=== PATIENT | female | born 1955 | race Caucasian/White ===

== ENCOUNTER → 2016-05-06 | Outpatient (CLI) | payer BC, MEDICARE ==
[2016-05-06 09:59] LABS: INR 1.4 (<1.1); Prothrombin Time 14.1 sec (9.0-12.0)
[2016-05-06 10:02] LABS: CH 29.7; CHCM 33.9; HCT 38.9 % (34.0-46.0); HDW 3.04; HGB 12.9 gm/dL (11.4-16.0); MCH 29.3 pg (25.0-35.0); MCHC 33.2 g/dL (31.0-37.0); Mean Platelet Volume 8.1; RBC 4.41 m/uL (3.80-5.40); RDW 14.1 % (11.5-15.5); WBC 7.2 k/uL (3.8-10.6)
[2016-05-06 10:52] LABS: ALT 35 U/L (9-52); AST 26 U/L (14-36); Alkaline Phosphatase 122 U/L (38-126); Anion Gap 12 mmol/L; Blood Urea Nitrogen 9 mg/dL (7-17); Carbon Dioxide 25 mmol/L (22-30); Chloride 107 mmol/L (98-107); Glucose 126 mg/dL (74-99); Non-African American GFR(MDRD) >60 (>60 ml/min/1.73 sqM); Potassium 4.1 mmol/L (3.5-5.1); Sodium 144 mmol/L (137-145); Total Protein 6.7 g/dL (6.3-8.2)
== END | disposition home or self-care (01) ==
LOC: LABWHC1 09:09
PROVIDERS: ATTEND Internal Medicine Gastroenterology
DX: K74.60 Unspecified cirrhosis of liver (principal)
CPT/HCPCS: 36415; 80053; 82105; 85027; 85610

== ENCOUNTER → 2016-05-06 | Outpatient (CLI) | payer BC ==
--- NOTE | 2016-05-10 08:42 | MM ---
Reason for exam: screening (asymptomatic). Last mammogram was performed 2 years and 1 month ago. History: Patient is postmenopausal. Family history of breast cancer in 2 aunts at age 60, breast cancer in grandmother at age 60, and breast cancer in mother at age 52. Excisional biopsy of the right breast, 1998. Took hormonal contraceptives for 2 years beginning at age 47. Physical Findings: A clinical breast exam by your physician is recommended on an annual basis and results should be correlated with mammographic findings. MG Screening Mammo w CAD Bilateral CC and MLO view(s) were taken. Prior study comparison: April 07, 2014, bilateral MG screening mammo w CAD. February 27, 2012, bilateral digital screening mammo w/CAD. February 06, 2011, bilateral digital screening mammo w/CAD. The breast tissue is almost entirely fat. No significant changes when compared with prior studies. ASSESSMENT: Negative, BI-RAD 1 RECOMMENDATION: Routine screening mammogram of both breasts in 1 year.
== END | disposition home or self-care (01) ==
LOC: RADMAMWWP 08:39
PROVIDERS: ATTEND Internal Medicine
DX: Z12.31 Encounter for screening mammogram for malignant neoplasm of breast (principal)

== ENCOUNTER → 2016-11-04 | Outpatient (CLI) | payer BC ==
[2016-11-04 10:44] LABS: INR 1.4 (<1.2); Prothrombin Time 13.7 sec (9.0-12.0)
[2016-11-04 11:04] LABS: CH 28.4; CHCM 32.2; HDW 3.16; HGB 12.4 gm/dL (11.4-16.0); Hypochromasia Slight; MCH 28.9 pg (25.0-35.0); MCHC 32.6 g/dL (31.0-37.0); MCV 88.5 fL (80.0-100.0); Mean Platelet Volume 7.3; RDW 14.7 % (11.5-15.5); WBC 6.7 k/uL (3.8-10.6)
[2016-11-04 11:10] LABS: Anion Gap 8 mmol/L; Carbon Dioxide 28 mmol/L (22-30); Chloride 105 mmol/L (98-107); Glucose 237 mg/dL (74-99); Potassium 3.7 mmol/L (3.5-5.1); Sodium 141 mmol/L (137-145); Total Protein 6.5 g/dL (6.3-8.2)
[2016-11-04 11:11] LABS: ALT 40 U/L (9-52); AST 34 U/L (14-36); Alkaline Phosphatase 152 U/L (38-126); Blood Urea Nitrogen 14 mg/dL (7-17); Calcium 8.8 mg/dL (8.4-10.2); Non-African American GFR(MDRD) >60 (>60 ml/min/1.73 sqM); Total Bilirubin 0.6 mg/dL (0.2-1.3)
== END | disposition home or self-care (01) ==
LOC: LABWHC1 09:41
PROVIDERS: ATTEND Internal Medicine Gastroenterology
DX: K74.60 Unspecified cirrhosis of liver (principal)
CPT/HCPCS: 36415; 80053; 82105; 85027; 85610

== ENCOUNTER → 2017-05-12 | Outpatient (CLI) | payer BC, MEDICARE ==
[2017-05-12 16:54] LABS: INR 1.2 (<1.2); Prothrombin Time 11.5 sec (9.0-12.0)
[2017-05-12 16:56] LABS: HCT 33.5 % (34.0-46.0); HGB 11.3 gm/dL (11.4-16.0); MCH 29.6 pg (25.0-35.0); MCHC 33.9 g/dL (31.0-37.0); MCV 87.4 fL (80.0-100.0); Mean Platelet Volume 7.1; Platelet Count 213 k/uL (150-450); Poikilocytosis Slight; RBC 3.83 m/uL (3.80-5.40); RDW 14.6 % (11.5-15.5); WBC 7.1 k/uL (3.8-10.6)
[2017-05-12 17:01] LABS: Albumin 3.5 g/dL (3.5-5.0); Calcium 8.5 mg/dL (8.4-10.2); Potassium 4.2 mmol/L (3.5-5.1); Total Bilirubin 0.7 mg/dL (0.2-1.3); Total Protein 6.6 g/dL (6.3-8.2)
== END | disposition home or self-care (01) ==
LOC: LABWHC1 16:17
PROVIDERS: ATTEND Internal Medicine Gastroenterology
DX: K74.60 Unspecified cirrhosis of liver (principal)
CPT/HCPCS: 36415; 80053; 82105; 85027; 85610

== ENCOUNTER 2017-05-17 16:38 | Emergency (ER) | payer BC, MEDICARE, OTHER ==
[2017-05-17 16:49] VITALS: PULSE 71
[2017-05-17] MEDS ORDERED: KETOROLAC 30 MG/ML 1 ML VIAL IM STA (17:19)
[2017-05-17] MEDS ORDERED: ORPHENADRINE 30 MG/ML 2 ML VIAL IM STA (17:19)
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
[2017-05-17 18:29] VITALS: BP 181/81; RESP 17; TEMP 97.4
== END 2017-05-17 18:28 | disposition home or self-care (01) ==
LOC: EC 16:38
DX: S13.4XXA Sprain of ligaments of cervical spine, initial encounter (principal); R11.0 Nausea; R40.2142 Coma scale, eyes open, spontaneous, at arrival to emergency department; R40.2252 Coma scale, best verbal response, oriented, at arrival to emergency department; R40.2362 Coma scale, best motor response, obeys commands, at arrival to emergency department; I48.91 Unspecified atrial fibrillation; J45.909 Unspecified asthma, uncomplicated; E11.9 Type 2 diabetes mellitus without complications; K21.9 Gastro-esophageal reflux disease without esophagitis; I10 Essential (primary) hypertension; G47.30 Sleep apnea, unspecified; F32.9 Major depressive disorder, single episode, unspecified; Z99.89 Dependence on other enabling machines and devices; Z98.890 Other specified postprocedural states; Z79.4 Long term (current) use of insulin; Z79.899 Other long term (current) drug therapy; Z88.1 Allergy status to other antibiotic agents; Z88.2 Allergy status to sulfonamides; V43.62XA Car passenger injured in collision with other type car in traffic accident, initial encounter; Y92.89 Other specified places as the place of occurrence of the external cause
CPT/HCPCS: 72125; 99284; 96372 ×2; J2360; J1885

== ENCOUNTER 2017-05-19 18:11 | Emergency (ER) | payer BC, MEDICARE, OTHER ==
[2017-05-19 18:32] VITALS: BP 146/90; PULSE 113; RESP 20; TEMP 98.6
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
== END 2017-05-19 20:00 | disposition home or self-care (01) ==
LOC: EC 18:11
DX: S16.1XXA Strain of muscle, fascia and tendon at neck level, initial encounter (principal); R51 Headache; E11.9 Type 2 diabetes mellitus without complications; J45.909 Unspecified asthma, uncomplicated; K21.9 Gastro-esophageal reflux disease without esophagitis; I10 Essential (primary) hypertension; I48.91 Unspecified atrial fibrillation; F32.9 Major depressive disorder, single episode, unspecified; Z79.4 Long term (current) use of insulin; Z79.899 Other long term (current) drug therapy; Z88.2 Allergy status to sulfonamides; Z88.8 Allergy status to other drugs, medicaments and biological substances; V43.62XA Car passenger injured in collision with other type car in traffic accident, initial encounter; Y92.410 Unspecified street and highway as the place of occurrence of the external cause
CPT/HCPCS: 70450; 99284

== ENCOUNTER → 2018-01-12 | Outpatient (CLI) | payer BC ==
--- NOTE | 2018-01-14 09:56 | MM ---
Reason for exam: screening (asymptomatic). Last mammogram was performed 1 year and 8 months ago. History: Patient is postmenopausal. Family history of breast cancer in 2 aunts at age 60, breast cancer in grandmother at age 60, and breast cancer in mother at age 52. Excisional biopsy of the right breast, 1998. Took hormonal contraceptives for 2 years beginning at age 47. Physical Findings: A clinical breast exam by your physician is recommended on an annual basis and results should be correlated with mammographic findings. MG Screening Mammo w CAD Bilateral CC and MLO view(s) were taken. XCCM view(s) were taken of the right breast. Prior study comparison: May 06, 2016, bilateral MG screening mammo w CAD. April 07, 2014, bilateral MG screening mammo w CAD. There are scattered fibroglandular densities. No significant changes when compared with prior studies. ASSESSMENT: Benign, BI-RAD 2 RECOMMENDATION: Routine screening mammogram of both breasts in 1 year.
== END | disposition home or self-care (01) ==
LOC: RADMAMWWP 13:21
PROVIDERS: ATTEND Internal Medicine
DX: Z12.31 Encounter for screening mammogram for malignant neoplasm of breast (principal)
CPT/HCPCS: 77067

== ENCOUNTER → 2019-02-03 | Outpatient (CLI) | payer BC ==
[2019-02-03 16:00] LABS: HCT 38.8 % (34.0-46.0); HGB 11.9 gm/dL (11.4-16.0); Hypochromasia Slight; MCH 25.8 pg (25.0-35.0); MCHC 30.6 g/dL (31.0-37.0); MCV 84.4 fL (80.0-100.0); Mean Platelet Volume 7.8; Platelet Count 142 k/uL (150-450); RDW 15.5 % (11.5-15.5); WBC 5.1 k/uL (3.8-10.6)
[2019-02-03 23:41] LABS: African American GFR (CKD) 69.9 (60.0-200.0); Albumin 4.1 g/dL (3.80-4.90); Albumin/Globulin Ratio 1.95 (1.60-3.17); Anion Gap 6.6 mmol/L (4.00-12.00); Carbon Dioxide 28.4 mmol/L (21.6-31.8); Chol/HDL Ratio 3.39; Globulin 2.1 g/dL (1.6-3.3); LDL Cholesterol,Calculated 98.6 mg/dL (0.0-131.0); Non-African American GFR(CKD) 60.3 (60.0-200.0); Potassium 4.4 mmol/L (3.5-5.5); Total Bilirubin 0.5 mg/dL (0.2-1.2); Total Protein 6.2 g/dL (6.2-8.2); VLDL Calculation 18.4 mg/dL (5.00-40.00)
[2019-02-04 01:01] LABS: Hemoglobin A1C 7.5 % (4.0-6.0)
== END | disposition home or self-care (01) ==
LOC: LABWHC1 15:10
PROVIDERS: ATTEND Internal Medicine
DX: I10 Essential (primary) hypertension (principal); E78.5 Hyperlipidemia, unspecified; E03.9 Hypothyroidism, unspecified; E11.65 Type 2 diabetes mellitus with hyperglycemia; Z79.4 Long term (current) use of insulin
CPT/HCPCS: 36415; 80053; 80061; 83036; 84443; 85027

== ENCOUNTER → 2019-03-17 | Outpatient (CLI) | payer BC ==
[2019-03-17 12:30] LABS: HCT 41.3 % (34.0-46.0); HGB 13.1 gm/dL (11.4-16.0); MCH 26.6 pg (25.0-35.0); MCHC 31.7 g/dL (31.0-37.0); MCV 83.9 fL (80.0-100.0); Platelet Count 159 k/uL (150-450); RBC 4.93 m/uL (3.80-5.40); RDW 15.9 % (11.5-15.5); WBC 6.6 k/uL (3.8-10.6)
[2019-03-17 19:17] LABS: African American GFR (CKD) 62.3 (60.0-200.0); Albumin 4.2 g/dL (3.80-4.90); Anion Gap 8.7 mmol/L (4.00-12.00); BUN/Creat Ratio 14.55 Ratio (12.00-20.00); Calcium 8.7 mg/dL (8.7-10.3); Carbon Dioxide 27.3 mmol/L (21.6-31.8); Globulin 2.1 g/dL (1.6-3.3); Non-African American GFR(CKD) 53.8 (60.0-200.0); Potassium 4.3 mmol/L (3.5-5.5); Total Bilirubin 0.4 mg/dL (0.3-1.2); Total Protein 6.3 g/dL (6.2-8.2)
== END | disposition home or self-care (01) ==
LOC: LABWHC1 11:19
PROVIDERS: ATTEND Internal Medicine Gastroenterology
DX: K74.60 Unspecified cirrhosis of liver (principal)
CPT/HCPCS: 36415; 80053; 82105; 85027

== ENCOUNTER → 2019-11-17 | Outpatient (CLI) | payer BC ==
--- NOTE | 2019-11-17 09:21 | US ---
EXAMINATION TYPE: US liver DATE OF EXAM: 11/17/2019 COMPARISON: NONE CLINICAL HISTORY: K74.60 Cirrhosis of liver. EXAM MEASUREMENTS: Liver Length: 15.5cm Gallbladder Wall: Surgically absent CBD: 0.4m Right Kidney: 9.3 x 4.1 x 4.6cm Morbidly obese patient. Technically difficult, severely limited study. Pancreas: Mostly obscured by bowel gas, portions visualized appear wnl Liver: fatty infiltrate, very limited visualization Gallbladder: Surgically absent Evidence for sonographic Zamora's sign: no CBD: wnl Right Kidney: No hydronephrosis or masses seen IMPRESSION: 1. Increased echogenicity of the liver is nonspecific could be seen with hepatic steatosis. Hepatitis or diffuse hepatocellular disease in the differential diagnosis. Correlate clinically.
== END | disposition home or self-care (01) ==
LOC: RADUSWWP 08:41
PROVIDERS: ATTEND Internal Medicine Gastroenterology
DX: K74.60 Unspecified cirrhosis of liver (principal)
CPT/HCPCS: 76705

== ENCOUNTER → 2019-11-17 | Outpatient (CLI) | payer BC ==
--- NOTE | 2019-11-18 09:13 | MM ---
Reason for exam: screening (asymptomatic). Last mammogram was performed 1 year and 10 months ago. History: Patient is postmenopausal. Family history of breast cancer in mother at age 72, breast cancer in maternal grandmother at age 60, and breast cancer in 2 aunts at age 60. Excisional biopsy of the right breast, 1998. Took hormonal contraceptives for 2 years beginning at age 47. Physical Findings: A clinical breast exam by your physician is recommended on an annual basis and results should be correlated with mammographic findings. MG 3D Screening Mammo W/Cad Bilateral CC and MLO view(s) were taken. XCCL view(s) were taken of the right breast. Prior study comparison: January 12, 2018, bilateral MG screening mammo w CAD. May 06, 2016, bilateral MG screening mammo w CAD. There are scattered fibroglandular densities. There is no discrete abnormality. No significant changes when compared with prior studies. ASSESSMENT: Negative, BI-RAD 1 RECOMMENDATION: Routine screening mammogram of both breasts in 1 year.
== END | disposition home or self-care (01) ==
LOC: RADMAMWWP 08:44
PROVIDERS: ATTEND Internal Medicine
DX: Z12.31 Encounter for screening mammogram for malignant neoplasm of breast (principal)
CPT/HCPCS: 77063; 77067

== ENCOUNTER → 2019-11-17 | Outpatient (CLI) | payer BC ==
[2019-11-17 11:58] LABS: Basophils % (A) 1 %; Eosinophils # (A) 0.2 k/uL (0-0.7); Eosinophils % (A) 6 %; HCT 34.6 % (34.0-46.0); HGB 10.9 gm/dL (11.4-16.0); Hypochromasia Slight; Lymphocytes % (A) 24 %; MCH 26.6 pg (25.0-35.0); MCHC 31.6 g/dL (31.0-37.0); MCV 84.2 fL (80.0-100.0); Mean Platelet Volume 7.9; Monocytes # (A) 0.3 k/uL (0-1.0); Monocytes % (A) 7 %; Neutrophils # (A) 2.6 k/uL (1.3-7.7); Neutrophils % (A) 62 %; Platelet Count 105 k/uL (150-450); RBC 4.11 m/uL (3.80-5.40); RDW 15.2 % (11.5-15.5); WBC 4.2 k/uL (3.8-10.6)
[2019-11-17 22:24] LABS: African American GFR (CKD) 61.9 (60.0-200.0); Albumin 3.9 g/dL (3.80-4.90); Albumin/Globulin Ratio 1.95 (1.60-3.17); Anion Gap 9.5 mmol/L (4.00-12.00); BUN/Creat Ratio 13.64 Ratio (12.00-20.00); Calcium 8.7 mg/dL (8.7-10.3); Carbon Dioxide 26.5 mmol/L (21.6-31.8); Non-African American GFR(CKD) 53.4 (60.0-200.0); Potassium 4.5 mmol/L (3.5-5.5); Total Bilirubin 0.5 mg/dL (0.3-1.2); Total Protein 5.9 g/dL (6.2-8.2)
== END | disposition home or self-care (01) ==
LOC: LABWHC1 09:32
PROVIDERS: ATTEND Internal Medicine Gastroenterology
DX: K74.60 Unspecified cirrhosis of liver (principal)
CPT/HCPCS: 36415; 80053; 82105; 85025

== ENCOUNTER 2020-02-19 15:28 | Emergency (ER) | payer BC ==
--- NOTE | 2020-02-19 16:18 | XR ---
EXAMINATION TYPE: XR KUB DATE OF EXAM: 02/19/2020 COMPARISON: NONE HISTORY: Vertebra TECHNIQUE: 2 views upright FINDINGS: There is no sign of intestinal obstruction or pneumoperitoneum. Fecal pattern is normal. Michelle ng bases are clear of consolidation. There is cervical spine fusion surgery. There is lumbar levoscol iosis. IMPRESSION: Nonacute abdomen.
--- NOTE | 2020-02-19 16:18 | XR ---
EXAMINATION TYPE: XR chest 2V DATE OF EXAM: 02/19/2020 COMPARISON: 03/18/2017 HISTORY: Short of breath TECHNIQUE: 2 views FINDINGS: Heart and mediastinum are normal. There is some mild increased interstitial density and ate lectasis in the lower lung [place]. There is no obvious heart failure. There are no hilar masses. IMPRESSION: Interstitial density and subsegmental atelectasis at the lung bases increased compared to old exam. No heart failure. Normal heart.
--- NOTE | 2020-02-19 16:18 | ED ---
General Adult HPI - General Chief complaint: Shortness of Breath Stated complaint: SOB/Swelling Time Seen by Provider: 02/19/20 15:40 Source: patient, RN notes reviewed, old records reviewed Mode of arrival: wheelchair Limitations: no limitations - History of Present Illness Initial comments: 64 presenting for abdominal distention, and dyspnea. Patient states she does have liver disease. She follows with gastroenterology. She states that her abdomen is tense and enlarged. She denies associated pain. She states that this has presented over the past several days. She now has some difficulty breathing. She denies cough or fever. She states she was recently tested for coronavirus in this was negative. She states she's had a decreased appetite secondary to her abdominal distention. She did have a small bowel movement within the past 24 hours. Previous history of cholecystectomy. She also reports bilateral lower extremity edema which has worsened as well. - Related Data Home Medications Medication Instructions Recorded Confirmed Atorvastatin [Lipitor] 20 mg PO HS 03/13/17 05/19/17 Cyclobenzaprine [Flexeril] 10 mg PO TID PRN 03/13/17 05/19/17 DULoxetine HCL [Cymbalta] 60 mg PO DAILY 03/13/17 05/19/17 Enalapril [Vasotec] 10 mg PO DAILY 03/13/17 05/19/17 Furosemide [Lasix] 20 mg PO QAM 03/13/17 05/19/17 Gabapentin [Neurontin] 300 mg PO TID 03/13/17 05/19/17 HYDROcodone/APAP 7.5-325MG [[place] 1 tab PO Q4-6H PRN 03/13/17 05/19/17 7.5-325] Mirtazapine [Remeron] 15 mg PO HS 03/13/17 05/19/17 Mometasone Furoate [Nasonex Nasal 1 spray EA NOSTRIL DAILY PRN 03/13/17 05/19/17 Paradis] Omeprazole [PriLOSEC] 20 mg PO BID 03/13/17 05/19/17 Potassium Chloride [K-Tab ER] 10 meq PO DAILY 03/13/17 05/19/17 Zafirlukast [Accolate] 20 mg PO BID 03/13/17 05/19/17 Furosemide [Lasix] 10 mg PO DAILY@1700 05/17/17 05/19/17 Insulin Glargine,Hum.rec.anlog 50 unit SQ HS 05/17/17 05/19/17 [Basaglar Christineikpen U-100] Liraglutide [Victoza 3-Xavier] 1.2 mg SQ QAM 05/17/17 05/19/17 Previous Rx's Medication Instructions Recorded Apixaban [Eliquis] 5 mg PO BID #60 tab 03/21/17 Levothyroxine Sodium [Synthroid] 125 mcg PO DAILY@0630 #30 tab 03/21/17 Propafenone [Rythmol] 225 mg PO Q8HR #90 tab 03/21/17 Ibuprofen [Motrin] 600 mg PO Q8HR PRN #30 tab 05/17/17 diazePAM [Valium] 5 mg PO TID #12 tab 05/19/17 Allergies Allergy/AdvReac Type Severity Reaction Status Date / Time levofloxacin [From Levaquin] Allergy Anaphylaxis Verified 02/19/20 15:39 Sulfa (Sulfonamide Allergy Anaphylaxis Verified 02/19/20 15:39 Antibiotics) sulfamethoxazole Allergy Anaphylaxis Verified 02/19/20 15:39 [From Bactrim] terfenadine [From Seldane] Allergy Unknown Verified 02/19/20 15:39 trimethoprim [From Bactrim] Allergy Anaphylaxis Verified 02/19/20 15:39 Review of Systems ROS Statement: Those systems with pertinent positive or pertinent negative responses have been documented in the HPI. ROS Other: All systems not noted in ROS Statement are negative. Past Medical History Past Medical History: Atrial Fibrillation, Asthma, Diabetes Mellitus, GERD/Reflux, Hypertension, Liver Disease, Sleep Apnea/CPAP/BIPAP, Thyroid Disorder Additional Past Medical History / Comment(s): back pain , right knee pain. Daughter relates that her mother has chronic medical noncompliance History of Any Multi-Drug Resistant Organisms: None Reported Past Surgical History: Back Surgery, Cholecystectomy, Orthopedic Surgery, Tonsi llectomy Additional Past Surgical History / Comment(s): Knee surgery, previous history of lap band insertion and subsequent removal, back surgery, tonsillectomy, cholecystectomy Past Psychological History: Depression Smoking Status: Never smoker Past Alcohol Use History: None Reported Past Drug Use History: None Reported - Past Family History Father Family Medical History: Cancer Mother Family Medical History: Cancer Additional Family Medical History / Comment(s): BREAST General Exam Limitations: no limitations General appearance: alert, in no apparent distress Head exam: Present: atraumatic, normocephalic Eye exam: Present: normal appearance, PERRL ENT exam: Present: normal exam Neck exam: Present: normal inspection, tenderness. Absent: meningismus Respiratory exam: Present: decreased breath sounds. Absent: respiratory distress, wheezes, rales, rhonchi Cardiovascular Exam: Present: regular rate, normal rhythm GI/Abdominal exam: Present: distended. Absent: tenderness, guarding, rebound Extremities exam: Present: pedal edema Neurological exam: Present: alert, oriented X3. Absent: motor sensory deficit Psychiatric exam: Present: normal affect, normal mood Skin exam: Present: warm, dry, intact. Absent: cyanosis, diaphoretic Course Vital Signs 02/19/20 02/19/20 02/19/20 15:34 16:14 17:05 Temperature 99.4 F Pulse Rate 90 94 88 Respiratory 20 26 H 24 Rate Blood Pressure 107/28 175/95 174/87 O2 Sat by Pulse 96 98 100 Oximetry 02/19/20 17:23 Temperature Pulse Rate Respiratory Rate Blood Pressure O2 Sat by Pulse 94 L Oximetry - Reevaluation(s) Reevaluation #1: 02/19/20 17:35 Patient has been off of her Lasix for 2 weeks secondary to an issue with the mail order pharmacy. EKG Findings - EKG Comments: EKG Findings:: EKG: Normal sinus rhythm, rate 91, WI interval 152, QRS duration 82, QTC [address] segment elevation. Medical Decision Making - Medical Decision Making 64-year-old female with abdominal distention, history of liver cirrhosis, bilateral lower extremity swelling. Patient has a very distended firm abdomen with no tenderness. She has pitting edema bilaterally. She is in mild respiratory distress secondary to abdominal distention. Her workup reveals a chest x-ray which is negative for significant pulmonary edema. CT does show abdominal ascites and cirrhosis. She has a CBC with no leukocytosis, stable hemoglobin at 10.3. Her PT INR is normal, her albumin is down at 2.9 from recent of 3.9. Ammonia is negative. I did plan to admit this patient for IV diuresis. She declines prefers outpatient treatment. She is given 40 mg of IV Lasix in the emergency department and given 4 total doses of 20 mg of Lasix for the next 2 days while she is awaiting her mail order prescription for Lasix. She will return with worsening or changing symptoms. - Lab Data Result diagrams: 02/19/20 15:59 02/19/20 15:59 Lab Results 02/19/20 02/19/20 02/19/20 Range/Units 15:59 15:59 15:59 WBC 6.7 (3.8-10.6) k/uL RBC 3.89 (3.80-5.40) m/uL Hgb 10.3 L (11.4-16.0) gm/dL Hct 32.8 L (34.0-46.0) % MCV 84.4 (80.0-100.0) fL MCH 26.5 (25.0-35.0) pg MCHC 31.4 (31.0-37.0) g/dL RDW 16.1 H (11.5-15.5) % Plt Count 250 (150-450) k/uL MPV 7.2 Neutrophils % 65 % Lymphocytes % 17 % Monocytes % 9 % Eosinophils % 5 % Basophils % 3 % Neutrophils # 4.4 (1.3-7.7) k/uL Lymphocytes # 1.2 (1.0-4.8) k/uL Monocytes # 0.6 (0-1.0) k/uL Eosinophils # 0.3 (0-0.7) k/uL Basophils # 0.2 (0-0.2) k/uL Hypochromasia Moderate Poikilocytosis Slight Anisocytosis Slight PT 10.3 (9.0-12.0) sec INR 1.0 (<1.2) APTT 23.6 (22.0-30.0) sec Sodium 140 (137-145) mmol/L Potassium 4.3 (3.5-5.1) mmol/L Chloride 106 (98-107) mmol/L Carbon Dioxide 32 H (22-30) mmol/L Anion Gap 2 mmol/L BUN 9 (7-17) mg/dL Creatinine 0.78 (0.52-1.04) mg/dL Est GFR (CKD-EPI)AfAm >90 (>60 ml/min/1.73 sqM) Est GFR (CKD-EPI)NonAf 82 (>60 ml/min/1.73 sqM) Glucose 287 H (74-99) mg/dL Plasma Lactic Acid Omkra (0.7-2.0) mmol/L Calcium 8.3 L (8.4-10.2) mg/dL Magnesium 1.7 (1.6-2.3) mg/dL Total Bilirubin 0.7 (0.2-1.3) mg/dL AST 26 (14-36) U/L ALT 23 (4-34) U/L Alkaline Phosphatase 116 (38-126) U/L Ammonia (<30) umol/L Troponin I (0.000-0.034) ng/mL NT-Pro-B Natriuret Pep pg/mL Total Protein 5.9 L (6.3-8.2) g/dL Albumin 2.9 L (3.5-5.0) g/dL 02/19/20 02/19/20 02/19/20 Range/Units 15:59 15:59 15:59 WBC (3.8-10.6) k/uL RBC (3.80-5.40) m/uL Hgb (11.4-16.0) gm/dL Hct (34.0-46.0) % MCV (80.0-100.0) fL MCH (25.0-35.0) pg MCHC (31.0-37.0) g/dL RDW (11.5-15.5) % Plt Count (150-450) k/uL MPV Neutrophils % % Lymphocytes % % Monocytes % % Eosinophils % % Basophils % % Neutrophils # (1.3-7.7) k/uL Lymphocytes # (1.0-4.8) k/uL Monocytes # (0-1.0) k/uL Eosinophils # (0-0.7) k/uL Basophils # (0-0.2) k/uL Hypochromasia Poikilocytosis Anisocytosis PT (9.0-12.0) sec INR (<1.2) APTT (22.0-30.0) sec Sodium (137-145) mmol/L Potassium (3.5-5.1) mmol/L Chloride (98-107) mmol/L Carbon Dioxide (22-30) mmol/L Anion Gap mmol/L BUN (7-17) mg/dL Creatinine (0.52-1.04) mg/dL Est GFR (CKD-EPI)AfAm (>60 ml/min/1.73 sqM) Est GFR (CKD-EPI)NonAf (>60 ml/min/1.73 sqM) Glucose (74-99) mg/dL Plasma Lactic Acid Omkar 1.9 (0.7-2.0) mmol/L Calcium (8.4-10.2) mg/dL Magnesium (1.6-2.3) mg/dL Total Bilirubin (0.2-1.3) mg/dL AST (14-36) U/L ALT (4-34) U/L Alkaline Phosphatase (38-126) U/L Ammonia 10 (<30) umol/L Troponin I <0.012 (0.000-0.034) ng/mL NT-Pro-B Natriuret Pep 68 pg/mL Total Protein (6.3-8.2) g/dL Albumin (3.5-5.0) g/dL Disposition Clinical Impression: Fluid overload, Abdominal ascites Disposition: HOME SELF-CARE Condition: Fair Instructions (If sedation given, give patient instructions): Ascites (ED), Cirrhosis (ED) Is patient prescribed a controlled substance at d/c from ED?: No Referrals: Dorina Fernández MD [Primary Care Provider] - 1-2 days Ashley Pollock MD [STAFF PHYSICIAN] - 1-2 days Time of Disposition: 17:38
[2020-02-19 16:20] LABS: Anisocytosis Slight; Basophils # (A) 0.2 k/uL (0-0.2); Basophils % (A) 3 %; Eosinophils # (A) 0.3 k/uL (0-0.7); Eosinophils % (A) 5 %; HCT 32.8 % (34.0-46.0); HGB 10.3 gm/dL (11.4-16.0); Hypochromasia Moderate; Lymphocytes # (A) 1.2 k/uL (1.0-4.8); Lymphocytes % (A) 17 %; MCH 26.5 pg (25.0-35.0); MCHC 31.4 g/dL (31.0-37.0); MCV 84.4 fL (80.0-100.0); Mean Platelet Volume 7.2; Monocytes # (A) 0.6 k/uL (0-1.0); Monocytes % (A) 9 %; Neutrophils # (A) 4.4 k/uL (1.3-7.7); Neutrophils % (A) 65 %; Platelet Count 250 k/uL (150-450); Poikilocytosis Slight; RBC 3.89 m/uL (3.80-5.40); RDW 16.1 % (11.5-15.5); WBC 6.7 k/uL (3.8-10.6)
[2020-02-19 16:39] LABS: Partial Thromboplastin Time 23.6 sec (22.0-30.0); Prothrombin Time 10.3 sec (9.0-12.0)
[2020-02-19 16:50] LABS: Lactic Acid, Venous 1.9 mmol/L (0.7-2.0)
[2020-02-19 16:52] LABS: ALT 23 U/L (4-34); AST 26 U/L (14-36); African American GFR (CKD) >90 (>60 ml/min/1.73 sqM); Albumin 2.9 g/dL (3.5-5.0); Alkaline Phosphatase 116 U/L (38-126); Anion Gap 2 mmol/L; Blood Urea Nitrogen 9 mg/dL (7-17); Calcium 8.3 mg/dL (8.4-10.2); Carbon Dioxide 32 mmol/L (22-30); Chloride 106 mmol/L (98-107); Glucose 287 mg/dL (74-99); Magnesium 1.7 mg/dL (1.6-2.3); Non-African American GFR(CKD) 82 (>60 ml/min/1.73 sqM); Potassium 4.3 mmol/L (3.5-5.1); Sodium 140 mmol/L (137-145); Total Bilirubin 0.7 mg/dL (0.2-1.3); Total Protein 5.9 g/dL (6.3-8.2)
--- NOTE | 2020-02-19 17:11 | CT ---
EXAMINATION TYPE: CT abdomen pelvis wo con DATE OF EXAM: 02/19/2020 COMPARISON: 03/15/2017 HISTORY: Abdominal pain CT DLP: 2274 mGycm Automated exposure control for dose reduction was used. Images were obtained from the diaphragm to the floor the pelvis without contrast. There is some patchy atelectasis at the lung bases. Heart size is fairly normal. There is no pericard ial effusion. There is moderate abdominal ascites fluid. Liver is slightly irregular that could relate to cirrhosis . Spleen is intact. The stomach is intact. There are clips at the gastroesophageal junction. There is no evidence of pancreatic mass. The bile ducts are not dilated. Spleen measures 12 cm. There is no adrenal mass. Kidneys have normal size. There is no hydronephrosis . There is no retroperitoneal adenopathy. Bladder distends smoothly. Uterus is anteverted. There is n o inguinal hernia. There is no evidence of a pelvic mass. There is posterior fusion surgery in the joi mbar spine at multiple levels with metal artifact. I see no bony destructive process. There is mild s ubcutaneous edema around the abdomen. IMPRESSION: There is bilateral mild atelectasis at the lung bases improved compared to old exam. There is moderate abdominal ascites that is new compared to old exam. Changes in the liver suggestive of cirrhosis. Subcutaneous edema around the abdomen is new compared to old exam.
[2020-02-19] MEDS ORDERED: FUROSEMIDE 10 MG/ML 4 ML VIAL IV STA (17:15)
[2020-02-19] MEDS ORDERED: FUROSEMIDE 80 MG TAB PO STA (17:34)
[2020-02-19] MEDS ORDERED: FUROSEMIDE 20 MG TAB PO STA (17:37)
[2020-02-19 18:27] VITALS: BP 119/96; PULSE 93; RESP 22; TEMP 98.8
== END 2020-02-19 18:39 | disposition home or self-care (01) ==
LOC: EC 15:28
DX: E87.70 Fluid overload, unspecified (principal); R18.8 Other ascites; F32.9 Major depressive disorder, single episode, unspecified; I48.91 Unspecified atrial fibrillation; J45.909 Unspecified asthma, uncomplicated; K21.9 Gastro-esophageal reflux disease without esophagitis; E11.9 Type 2 diabetes mellitus without complications; I10 Essential (primary) hypertension; E07.9 Disorder of thyroid, unspecified; G47.33 Obstructive sleep apnea (adult) (pediatric); Z20.828 Contact with and (suspected) exposure to other viral communicable diseases; Z79.4 Long term (current) use of insulin; Z79.899 Other long term (current) drug therapy; Z88.1 Allergy status to other antibiotic agents; Z88.2 Allergy status to sulfonamides; Z88.8 Allergy status to other drugs, medicaments and biological substances; Z90.49 Acquired absence of other specified parts of digestive tract
CPT/HCPCS: 36415; 93005; 83880; 80053; 82140; 83605; 83735; 84484; 85025; 85610; 85730; 87635; 71046; 74018; 74176; 99285; 96374; J1940

== ENCOUNTER → 2020-05-22 | Outpatient (CLI) | payer BC ==
[2020-05-22 08:21] LABS: Anisocytosis Slight; Basophils # (A) 0.1 k/uL (0-0.2); Basophils % (A) 1 %; Eosinophils # (A) 0.4 k/uL (0-0.7); Eosinophils % (A) 7 %; HCT 28.4 % (34.0-46.0); HGB 8.8 gm/dL (11.4-16.0); Hypochromasia Marked; Lymphocytes # (A) 1.3 k/uL (1.0-4.8); Lymphocytes % (A) 21 %; MCH 22.3 pg (25.0-35.0); MCHC 31.1 g/dL (31.0-37.0); MCV 71.6 fL (80.0-100.0); Mean Platelet Volume 7.5; Microcytosis Moderate; Monocytes # (A) 0.5 k/uL (0-1.0); Monocytes % (A) 7 %; Neutrophils # (A) 3.8 k/uL (1.3-7.7); Neutrophils % (A) 63 %; Platelet Count 169 k/uL (150-450); Poikilocytosis Slight; RBC 3.96 m/uL (3.80-5.40); RDW 16.6 % (11.5-15.5); WBC 6.1 k/uL (3.8-10.6)
[2020-05-22 08:41] LABS: Albumin 3.5 g/dL (3.5-5.0); Calcium 9.1 mg/dL (8.4-10.2); Potassium 3.9 mmol/L (3.5-5.1); Total Bilirubin 0.7 mg/dL (0.2-1.3); Total Protein 6.6 g/dL (6.3-8.2)
--- NOTE | 2020-05-22 09:06 | US ---
EXAMINATION TYPE: US abdomen complete DATE OF EXAM: 05/22/2020 COMPARISON: CT 02/19/2020 CLINICAL HISTORY: 64-year-old female K74.60, R19.8. cirrhosis of liver TECHNIQUE: Multiple sonographic images of the abdomen are obtained. FINDINGS: EXAM MEASUREMENTS: Liver Length: 13.9 cm Gallbladder: Surgically absent CBD: 0.4 cm Spleen: 11.4 cm Right Kidney: 9.6 x 4.3 x 6.2 cm Left Kidney: 12.4 x 5.4 x 6.6 cm Pancreas: Only a small portion of the pancreatic body is seen. Remainder is obscured due to shadowin g from bowel gas. Liver: Coarsened appearance. Limited detailed assessment of the patient body habitus. Nodular contour . Gallbladder: Surgically absent CBD: wnl Spleen: Normal with a hilar splenule. Kidney: No hydronephrosis. Upper IVC: wnl Abd Aorta: only seen proximally, otherwise obscured by bowel gas. Roll Winder notes: Incidental note is made of small amount of free fluid adjacent to liver. IMPRESSION: 1. Limited detailed assessment of the liver due to patient body habitus. There is heterogeneous echot exture and nodular contour in keeping with patient's reported cirrhosis. 2. Status post cholecystectomy. No biliary ductal dilatation. 3. Trace perihepatic ascites.
== END | disposition home or self-care (01) ==
LOC: RADUSWWP 07:07
PROVIDERS: ATTEND Internal Medicine Gastroenterology
DX: K74.60 Unspecified cirrhosis of liver (principal); Z90.49 Acquired absence of other specified parts of digestive tract
CPT/HCPCS: 36415; 76700; 80053; 82105; 85025

== ENCOUNTER → 2020-05-23 | Outpatient (CLI) | payer BC ==
--- NOTE | 2020-05-23 12:06 | NM ---
EXAMINATION TYPE: NM gastric emptying static DATE OF EXAM: 05/23/2020 COMPARISON: NONE HISTORY: Pain Following administration of 2 mCi Tc 99m Sulfur Colloid with 4 oz. egg whites, 1 piece of toast with jam, and 8 oz. of water, projection images of the abdomen were obtained 10 minutes post ingestion. Patient Emptying Values 1 Hour 47 % 2 Hours 99 % 3 Hours 99 % 4 Hours 99 % Gastroesophagel reflux: None IMPRESSION: 1. No evidence of delayed gastric emptying. Gastric emptying normal percentage values: 30 minutes: <70% of retention (> 30% emptying) suggests abnormally fast emptying. 60 minutes: <90% retention (>10% emptying) is normal; less than 30% retention (>70% emptying) suggest s abnormally rapid empying. 90 minutes: <65% retention (> 35% emptying) is normal. 120 minutes: <60% retention (> 40% emptying) is normal. 180 minutes: <30% retention (> 70% emptying) is normal. Gastric emptying T-1/2: Solid: The normal range is 60-105 minutes Liquid only: Normal range is 10-45 minutes. Liquid only-children: At 60 minutes, normal range is 44-58 % . Liquid only-infants: At 60 minutes, normal range is 32-64 %. Additional references: Gastric Emptying Scintigraphy [email or web address]://[email or web address]
== END | disposition home or self-care (01) ==
LOC: RADNMMAIN 06:52
PROVIDERS: ATTEND Internal Medicine Gastroenterology
DX: R19.8 Other specified symptoms and signs involving the digestive system and abdomen (principal)
CPT/HCPCS: 78264; A9541

== ENCOUNTER → 2020-08-25 | Outpatient (CLI) | payer BC ==
[2020-08-26 02:05] LABS: Basophils # (A) 0.04 X 10*3/uL (0.00-0.10); Basophils % (A) 0.5 %; Eosinophils # (A) 0.47 X 10*3/uL (0.04-0.35); HCT 39.8 % (37.2-46.3); HGB 11.7 g/dL (12.0-15.0); Lymphocytes # (A) 1.78 X 10*3/uL (0.90-5.00); Lymphocytes % (A) 22.6 %; MCH 26.6 pg (27.0-32.0); MCHC 29.4 g/dL (32.0-37.0); MCV 90.5 fL (80.0-97.0); Mean Platelet Volume 11.5 fL (9.5-12.2); Monocytes % (A) 7.6 %; Neutrophils # (A) 4.96 X 10*3/uL (1.80-7.70); Neutrophils % (A) 62.9 %; Platelet Count 243 X 10*3/uL (140-440); RDW 20.2 % (11.5-14.5); WBC 7.88 X 10*3/uL (4.50-10.00)
[2020-08-26 02:21] LABS: African American GFR (CKD) 78.9 (60.0-200.0); Albumin 3.5 g/dL (3.80-4.90); Albumin/Globulin Ratio 1.25 (1.60-3.17); Anion Gap 7.1 mmol/L (4.00-12.00); BUN/Creat Ratio 12.22 Ratio (12.00-20.00); Calcium 8.7 mg/dL (8.7-10.3); Carbon Dioxide 30.9 mmol/L (21.6-31.8); Globulin 2.8 g/dL (1.6-3.3); Potassium 4.1 mmol/L (3.5-5.5); Total Bilirubin 0.8 mg/dL (0.2-1.2); Total Protein 6.3 g/dL (6.2-8.2)
== END | disposition home or self-care (01) ==
LOC: LABWHC1 12:36
PROVIDERS: ATTEND Internal Medicine Gastroenterology
DX: K74.60 Unspecified cirrhosis of liver (principal)
CPT/HCPCS: 36415; 80053; 85025

== ENCOUNTER → 2021-03-08 | Outpatient (CLI) | payer BC ==
[2021-03-08 18:19] LABS: African American GFR (CKD) 72.2 (60.0-200.0); Albumin/Globulin Ratio 1.22 (1.60-3.17); Anion Gap 8.8 mmol/L (10.00-18.00); BUN/Creat Ratio 12.15 Ratio (12.00-20.00); Blood Urea Nitrogen 11.7 mg/dL (9.0-27.0); Calcium 9.4 mg/dL (8.7-10.3); Carbon Dioxide 27.1 mmol/L (20.0-27.5); Globulin 3.3 g/dL (1.6-3.3); Non-African American GFR(CKD) 62.3 (60.0-200.0); Potassium 4.7 mmol/L (3.5-5.5); Total Bilirubin 0.8 mg/dL (0.30-1.20); Total Protein 7.2 g/dL (6.2-8.2)
[2021-03-08 18:38] LABS: Basophils # (A) 0.07 X 10*3/uL (0.00-0.10); Basophils % (A) 0.9 %; Eosinophils # (A) 0.67 X 10*3/uL (0.04-0.35); Eosinophils % (A) 8.5 %; HCT 44.5 % (37.2-46.3); Lymphocytes # (A) 2.15 X 10*3/uL (0.90-5.00); Lymphocytes % (A) 27.4 %; MCH 31.3 pg (27.0-32.0); MCHC 33.7 g/dL (32.0-37.0); MCV 92.9 fL (80.0-97.0); Mean Platelet Volume 10.9 fL (9.5-12.2); Monocytes # (A) 0.87 X 10*3/uL (0.20-1.00); Monocytes % (A) 11.1 %; Neutrophils # (A) 4.06 X 10*3/uL (1.80-7.70); Neutrophils % (A) 51.7 %; Platelet Count 129 X 10*3/uL (140-440); RBC 4.79 X 10*6/uL (4.10-5.20); RDW 14.1 % (11.5-14.5); WBC 7.85 X 10*3/uL (4.50-10.00)
== END | disposition home or self-care (01) ==
LOC: LABWHC1 11:24
PROVIDERS: ATTEND Internal Medicine Gastroenterology
DX: K74.60 Unspecified cirrhosis of liver (principal)
CPT/HCPCS: 36415; 80053; 85025

== ENCOUNTER → 2021-07-23 | Outpatient (CLI) | payer BC ==
--- NOTE | 2021-07-23 12:22 | US ---
EXAMINATION TYPE: US liver DATE OF EXAM: 07/23/2021 COMPARISON: 05/22/2020 CLINICAL HISTORY: 65-year-old female K74.60 Unspecified cirrhosis of liver. TECHNIQUE: Multiple sonographic images of the right upper quadrant are obtained. FINDINGS: EXAM MEASUREMENTS: Liver Length: 14.3 cm Gallbladder: surgically absent CBD: 0.4 cm Right Kidney: 9.5 x 4.1 x 4.8cm [place] [employer] Sawyer notes: Large body habitus, technically difficult, somewhat limited exam. Pancreas: Visualized body shows no gross abnormality. The remainder is obscured by bowel gas shadowin g. Liver: Very hypoechoic in appearance. Very difficult to penetrate adequately. Gallbladder: Surgically absent Evidence for sonographic Zamora's sign: no CBD: wnl Right Kidney: limited visualization. No hydronephrosis. IMPRESSION: 1. Very limited due to large patient body habitus. 2. Unable to assess the liver parenchyma in detail due to body wall attenuation. Alternatively, the h ypoechoic appearance of the liver could reflect hepatitis. Clinically correlate. 3. Status post cholecystectomy. No biliary ductal dilatation.
[2021-07-23 14:41] LABS: HCT 41.3 % (37.2-46.3); HGB 13.4 g/dL (12.0-15.0); MCH 30.7 pg (27.0-32.0); MCHC 32.4 g/dL (32.0-37.0); MCV 94.5 fL (80.0-97.0); Mean Platelet Volume 10.3 fL (9.5-12.2); NRBC Per 100 WBC 0 /100 WBCS (0.0-0.0); Platelet Count 94 X 10*3/uL (140-440); RBC 4.37 X 10*6/uL (4.10-5.20); RDW 13.3 % (11.5-14.5); WBC 6.55 X 10*3/uL (4.50-10.00)
[2021-07-23 14:48] LABS: African American GFR (CKD) 78.3 (60.0-200.0); Albumin 3.8 g/dL (3.8-4.9); Albumin/Globulin Ratio 1.58 (1.60-3.17); Anion Gap 10.3 mmol/L (10.00-18.00); Blood Urea Nitrogen 16.2 mg/dL (9.0-27.0); Calcium 8.6 mg/dL (8.7-10.3); Carbon Dioxide 23.7 mmol/L (20.0-27.5); Globulin 2.4 g/dL (1.6-3.3); Non-African American GFR(CKD) 67.6 (60.0-200.0); Total Bilirubin 0.9 mg/dL (0.30-1.20); Total Protein 6.2 g/dL (6.2-8.2)
[2021-07-23 15:47] LABS: Basophils # (A) 0.06 X 10*3/uL (0.00-0.10); Basophils % (A) 0.9 %; Eosinophils # (A) 0.45 X 10*3/uL (0.04-0.35); Eosinophils % (A) 6.9 %; Immature Grans, Automated 0.3 %; Lymphocytes % (A) 22.9 %; Monocytes # (A) 0.58 X 10*3/uL (0.20-1.00); Monocytes % (A) 8.9 %; Neutrophils # (A) 3.94 X 10*3/uL (1.80-7.70); Neutrophils % (A) 60.1 %
[2021-07-23 15:48] LABS: RBC Morphology NORMAL
== END | disposition home or self-care (01) ==
LOC: RADUSWWP 08:27
PROVIDERS: ATTEND Internal Medicine Gastroenterology
DX: K74.60 Unspecified cirrhosis of liver (principal); Z90.49 Acquired absence of other specified parts of digestive tract
CPT/HCPCS: 76705; 80053; 82105; 85025

== ENCOUNTER → 2021-10-26 | Outpatient (CLI) | payer BC ==
--- NOTE | 2021-10-28 08:07 | BD ---
EXAMINATION TYPE: Axial Bone Density DATE OF EXAM: 10/26/2021 COMPARISON: NONE CLINICAL HISTORY: 66 years year old Female. ICD-10 CODE: N95.1MENOPAUSAL AND FEMALE Height: 5 FT 7 IN Weight: 252 FRAX RISK QUESTIONS: Alcohol (3 or more units per day): NO Family History (Parent hip fracture): NO Glucocorticoids (More than 3mos): TOPICAL (Ex: prednisone, prednisolone, methylprednisolone, dexamethasone, and hydrocortisone). History of Fracture in Adulthood: YES Secondary Osteoporosis: 1. Type 1 Diabetes: NO 2. Hyperthyroidism: NO 3. Menopause before 45: NO 4. Malnutrition: NO 5. Chronic liver disease: YES Rheumatoid Arthritis: NO Current Tobacco Use: NO RISK FACTORS HISTORY OF: Surgery to Spine/Hip(right/left)/Wrist (right/left): YES Family History of Osteoporosis: NO Active: NO Diet low in dairy products/other sources of calcium: NO Postmenopausal woman: YES Take estrogen and/or progesterone medications: NO Lost more than 2 inches in height since high school: NO Frequent falls: NO Poor Health: YES Hyperparathyroidism: NO Adrenal Insufficiency: NO MEDICATIONS: Thyroid Medications: YES Which medication: LEVOTHYROXINE How Lon YEARS Additional Medications: LEVOTHYROXINE,INSULIN,OZEMBIC, VIT D, BLOOD PRESSURE MEDS, ELOQUIST, GABAPENTIN Additional History: EXAM MEASUREMENTS: Bone mineral density about the R hip (g/cm2): 0.844 Bone mineral density about the L hip (g/cm2): 0.830 T Score values are as follows: -----R Neck: -1.4 -----L Neck: -1.5 -----R Total: -0.6 -----L Total: -0.3 BASELINE Bone mineral density about the L Wrist (g/cm2): 0.649 T Score values are as follows: -----Dist. R+U: -0.3 -----Prox. R+U: 0.0 -----Radius total: -0.4 BASELINE FRAX%s: The graph provided illustrates a 13.1 % chance for a major osteoporotic fx and a 1.3 % chance for the hips probability for fx in 10 years time. IMPRESSION: Osteopenia (T Score between -2.5 and -1). There is slightly increased risk of fracture and the patient may be considered for treatment. Re-Screen 2-5 years. NOTE: T-SCORE=SD OF THE YOUNG ADULT MEAN.
--- NOTE | 2021-11-02 18:13 | MM ---
Reason for Exam: Screening (asymptomatic). Last mammogram was performed 2 year(s) and 0 month(s) ago. Patient History: Menarche at age 13. First Full-Term at age 31. Late child-bearing (after 30). Postmenopausal. Hormonal Contraceptives for 2 years from age 47 until age 49. 1998, Excisional Biopsy on the Right side. Maternal grandmother had breast cancer, age 60. Maternal aunt had breast cancer, age 60. Maternal aunt had breast cancer, age 60. Mother had breast cancer, age 72. Risk Values: Luciana 5 year model risk: 3.9%. NCI Lifetime model risk: 14.3%. Prior Study Comparison: 05/06/2016 Bilateral Screening Mammogram, [facility]. 01/12/2018 Bilateral Screening Mammogram, [facility]. 11/17/2019 Bilateral Screening Mammogram, [facility]. Tissue Density: There are scattered fibroglandular densities. Findings: Analyzed By CAD. There is no suspicious group of microcalcifications or new suspicious mass in either breast. Overall Assessment: Negative, BI-RAD 1 Management: Screening Mammogram of both breasts in 1 year. A clinical breast exam by your physician is recommended on an annual basis and results should be correlated with mammographic findings. Electronically signed and approved by: Shorty Aguilar DO
== END | disposition home or self-care (01) ==
LOC: RADBDWWP 15:33
PROVIDERS: ATTEND Internal Medicine
DX: Z12.31 Encounter for screening mammogram for malignant neoplasm of breast (principal); M85.89 Other specified disorders of bone density and structure, multiple sites; Z80.3 Family history of malignant neoplasm of breast; Z78.0 Asymptomatic menopausal state
CPT/HCPCS: 77063; 77067; 77080

== ENCOUNTER → 2022-02-14 | Outpatient (CLI) | payer BC ==
[2022-02-14 22:48] LABS: Basophils # (A) 0.06 X 10*3/uL (0.00-0.10); Basophils % (A) 1.2 %; Eosinophils # (A) 0.56 X 10*3/uL (0.04-0.35); Eosinophils % (A) 10.9 %; HCT 39.9 % (37.2-46.3); HGB 13.5 g/dL (12.0-15.0); Immature Grans, Automated 0.2 %; Lymphocytes # (A) 1.31 X 10*3/uL (0.90-5.00); Lymphocytes % (A) 25.4 %; MCHC 33.8 g/dL (32.0-37.0); MCV 94.5 fL (80.0-97.0); Mean Platelet Volume 11.2 fL (9.5-12.2); Monocytes # (A) 0.52 X 10*3/uL (0.20-1.00); Monocytes % (A) 10.1 %; NRBC Per 100 WBC 0 /100 WBCS (0.0-0.0); Neutrophils % (A) 52.2 %; Platelet Count 112 X 10*3/uL (140-440); RBC 4.22 X 10*6/uL (4.10-5.20); RDW 13.7 % (11.5-14.5); WBC 5.16 X 10*3/uL (4.50-10.00)
[2022-02-14 22:49] LABS: African American GFR (CKD) 68.5 (60.0-200.0); Albumin 3.7 g/dL (3.8-4.9); Albumin/Globulin Ratio 1.61 (1.60-3.17); Anion Gap 6.8 mmol/L (10.00-18.00); BUN/Creat Ratio 13.2 Ratio (12.00-20.00); Blood Urea Nitrogen 13.2 mg/dL (9.0-27.0); Calcium 8.9 mg/dL (8.7-10.3); Carbon Dioxide 26.2 mmol/L (20.0-27.5); Globulin 2.3 g/dL (1.6-3.3); Non-African American GFR(CKD) 59.1 (60.0-200.0); Potassium 4.8 mmol/L (3.5-5.5)
== END | disposition home or self-care (01) ==
LOC: LABWHC1 15:01
PROVIDERS: ATTEND Internal Medicine Cardiovascular Disease
DX: K74.60 Unspecified cirrhosis of liver (principal)
CPT/HCPCS: 36415; 80053; 82105; 85025

== ENCOUNTER → 2022-08-14 | Outpatient (CLI) | payer BC ==
--- NOTE | 2022-08-14 10:54 | US ---
EXAMINATION TYPE: US liver DATE OF EXAM: 08/14/2022 COMPARISON: 02/19/2020, 07/23/2021 CLINICAL INDICATION: Female, 66 years old with history of K74.60 UNSPECIFIED CIRRHOSIS OF LIVER; 07/2021 TECHNIQUE: Multiple sonographic images of the right upper quadrant are obtained. FINDINGS: EXAM MEASUREMENTS: Liver Length: 16.8 cm Gallbladder Wall: Surgically absent cm CBD: 0.2 cm Right Kidney: 9.1x4.3x5.2 cm Pancreas: Tail obscured by overlying bowel gas Liver: enlarged, heterogenous, nodular liver. 1.4x1.4x1.7cm area noted at inferior lt lobe which is vascular in nature . Gallbladder: Surgically absent Evidence for sonographic Zamora's sign: No CBD: wnl Right Kidney: No hydronephrosis or masses seen exam technically difficult due to large body habitus IMPRESSION: Hepatic cirrhosis with indeterminate area within the right hepatic lobe with internal color Doppler f low. Further evaluation with MRI/CT liver mass protocol is recommended.
[2022-08-14 16:03] LABS: Basophils # (A) 0.05 X 10*3/uL (0.00-0.10); Eosinophils # (A) 0.43 X 10*3/uL (0.04-0.35); Eosinophils % (A) 8.9 %; HCT 37.1 % (37.2-46.3); HGB 11.8 d/dL (12.0-15.0); Lymphocytes % (A) 30.9 %; MCHC 31.8 d/dL (32.0-37.0); MCV 97.4 FL (80.0-97.0); Mean Platelet Volume 10.9 FL (9.5-12.2); Monocytes # (A) 0.49 X 10*3/uL (0.20-1.00); Monocytes % (A) 10.1 %; NRBC Per 100 WBC 0 X 10*3/uL (0.00-0.01); Neutrophils # (A) 2.37 X 10*3/uL (1.80-7.70); Neutrophils % (A) 48.9 %; Platelet Count 117 X 10*3/uL (140-440); RBC 3.81 X 10*6/uL (4.10-5.20); RDW 14.2 % (11.5-14.5); WBC 4.85 X 10*3/uL (4.50-10.00)
[2022-08-14 16:32] LABS: ALT 19 U/L (8-44); AST 25 U/L (13-35); Albumin 3.6 d/dL (3.8-4.9); Alkaline Phosphatase 89 U/L (41-126); BUN/Creat Ratio 13.73 Ratio (12.00-20.00); Blood Urea Nitrogen 15.1 mg/dL (9.0-27.0); Calcium 8.9 mg/dL (8.7-10.3); Chloride 110 mmol/L (96-109); Globulin 2.4 d/dL (1.6-3.3); Glucose 109 mg/dL (70-110); Potassium 4.1 mmol/L (3.5-5.5); Sodium 144 mmol/L (135-145); Total Bilirubin 0.7 mg/dL (0.3-1.2)
== END | disposition home or self-care (01) ==
LOC: RADUSWWP 09:19
PROVIDERS: ATTEND Internal Medicine Gastroenterology
DX: K74.60 Unspecified cirrhosis of liver (principal)
CPT/HCPCS: 76705; 80053; 82105; 85025

== ENCOUNTER → 2022-10-08 | Day surgery (SDC) | payer BC ==
[2022-10-02 15:09] VITALS: BMI 43.8
[~2022-10-08] MED LIST: LACTATED RINGERS 1,000 ML IV SCH; PROPOFOL 10 MG/ML 20 ML VIAL IV ONE
[2022-10-08 10:07] VITALS: TEMP 97.7
[2022-10-08 10:20] LABS: Glucose,Whole Blood 122 mg/dL (70-110)
--- NOTE | 2022-10-08 10:34 | P.PCN ---
Date of Procedure: 10/08/22 Procedure(s) Performed: BRIEF HISTORY: Patient is a 66-year-old, pleasant, white female scheduled for an upper endoscopy as a part of screening for esophageal varices this patient with history of liver cirrhosis related to fatty liver disease diagnosed 2012. Last EGD in 2019 did not reveal any evidence of esophageal varices.. PROCEDURE PERFORMED: Esophagogastroduodenoscopy with biopsy. PREOPERATIVE DIAGNOSIS: History of liver cirrhosis/screening for esophageal varices. IV sedation per anesthesia. PROCEDURE: After informed consent was obtained, the patient was brought into the endoscopy unit. IV sedation was administered by Anesthesia under continuous monitoring. Initially the Olympus GIF-140 video endoscope was inserted into the mouth. Esophagus intubated without any difficulty. It was gradually advanced into the stomach and duodenum and carefully examined. The bulb and the second part of the duodenum appeared normal. The scope at this time was withdrawn to the stomach, adequately insufflated with air, and upon careful examination, mucosa of the antrum, body, cardia and the fundus had changes consistent with mild to moderate portal hypertensive gastropathy. Multiple gastric polyps noted in the gastric body which were biopsied. Under direction no gastric varices identified. The scope was then withdrawn into the esophagus. The GE junction was located at 39 cm from the incisors. The esophagus appeared normal. There were no erosions or ulcerations, small mid and distal esophageal varices be seen seen and the patient tolerated the procedure well. IMPRESSION: 1. Small mid and distal esophageal varices. 2. Multiple gastric polyps status post biopsy 3. No evidence of gastric varices 4. Mild to moderate portal hypertensive gastropathy. RECOMMENDATIONS: The findings of this examination were discussed with the patient well as her family. She was advised to follow with the biopsy results. She will be started on propranolol 10 mg three times daily and she'll be seen in office in 2 months.
[2022-10-08 10:43] VITALS: RESP 16
[2022-10-08 11:11] VITALS: BP 133/78; PULSE 74
== END ==
LOC: ORWHC2ENDO 08:42
PROVIDERS: ATTEND Internal Medicine Gastroenterology
DX: K31.7 Polyp of stomach and duodenum (principal); I85.00 Esophageal varices without bleeding; K76.6 Portal hypertension; I48.19 Other persistent atrial fibrillation; I10 Essential (primary) hypertension; E78.5 Hyperlipidemia, unspecified; G47.33 Obstructive sleep apnea (adult) (pediatric); K21.9 Gastro-esophageal reflux disease without esophagitis; J44.9 Chronic obstructive pulmonary disease, unspecified; Z98.890 Other specified postprocedural states; Z88.8 Allergy status to other drugs, medicaments and biological substances; Z79.899 Other long term (current) drug therapy
CPT/HCPCS: 88305; 43239; J2704

== ENCOUNTER → 2023-04-09 | Outpatient (CLI) | payer BC ==
[2023-04-09 16:26] LABS: ALT 20 U/L (8-44); AST 31 U/L (13-35); Albumin 3.5 g/dL (3.8-4.9); Albumin/Globulin Ratio 1.17 Ratio (1.60-3.17); Alkaline Phosphatase 99 U/L (41-126); BUN/Creat Ratio 12.22 Ratio (12.00-20.00); Calcium 8.7 mg/dL (8.7-10.3); Carbon Dioxide 25.7 mmol/L (21.6-31.8); Chloride 108 mmol/L (96-109); Chol/HDL Ratio 2.48 Ratio; Glucose 97 mg/dL (70-110); LDL Cholesterol,Calculated 63.7 mg/dL (0.0-131.0); Potassium 3.6 mmol/L (3.5-5.5); Sodium 144 mmol/L (135-145); Total Bilirubin 0.9 mg/dL (0.3-1.2); Total Protein 6.5 g/dL (6.2-8.2)
[2023-04-09 16:46] LABS: Basophils # (A) 0.05 X 10*3/uL (0.00-0.10); Eosinophils # (A) 0.42 X 10*3/uL (0.04-0.35); Eosinophils % (A) 8.8 %; HCT 37.9 % (37.2-46.3); HGB 12.2 g/dL (12.0-15.0); Lymphocytes # (A) 1.28 X 10*3/uL (0.90-5.00); Lymphocytes % (A) 26.7 %; MCHC 32.2 g/dL (32.0-37.0); MCV 93.1 FL (80.0-97.0); Monocytes # (A) 0.57 X 10*3/uL (0.20-1.00); Monocytes % (A) 11.9 %; NRBC Per 100 WBC 0 X 10*3/uL (0.00-0.01); Neutrophils # (A) 2.46 X 10*3/uL (1.80-7.70); Neutrophils % (A) 51.4 %; Platelet Count 144 X 10*3/uL (140-440); RBC 4.07 X 10*6/uL (4.10-5.20); RDW 14.7 % (11.5-14.5); WBC 4.79 X 10*3/uL (4.50-10.00)
== END | disposition home or self-care (01) ==
LOC: LABWHC1 08:48
PROVIDERS: ATTEND Internal Medicine Cardiovascular Disease
DX: E78.2 Mixed hyperlipidemia (principal); K74.60 Unspecified cirrhosis of liver
CPT/HCPCS: 36415; 80053; 80061; 82105; 85025

== ENCOUNTER → 2023-11-24 | Outpatient (CLI) | payer BC ==
--- NOTE | 2023-11-24 11:40 | US ---
EXAMINATION TYPE: US liver DATE OF EXAM: 11/24/2023 COMPARISON: 08/14/2022 CLINICAL INDICATION: Female, 68 years old with history of K74.60 CIRRHOSIS OF LIVER; Bloating. Cirrho sis limited due to bowel gas and body habitus. TECHNIQUE: Grayscale and color Doppler imaging of the right upper quadrant was performed. FINDINGS: EXAM MEASUREMENTS: Liver Length: 15.2 cm Gallbladder Wall: Surgically absent CBD: .4 cm Right Kidney: 7.8 x 4.2 x 4.3 cm GLASSIE NOTES: Pancreas: Obscured by bowel gas Liver: Increased attenuation. Exam is limited by bowel gas. Gallbladder: Surgically absent Evidence for sonographic Zamora's sign: No CBD: Limited Right Kidney: Atrophic Small amount of ascites. IMPRESSION: Heterogeneous pattern of liver with lobulated margins suggestive of underlying hepatic cirrhosis\hepa tocellular disease. Small amount of ascites noted. Previously noted hepatic lesion is not well-seen o n today's exam and May BE technical. Consider correlation with MRI. [facility], , 11/24/2023 11:38 AM
== END | disposition home or self-care (01) ==
LOC: RADUSWWP 07:14
PROVIDERS: ATTEND Internal Medicine Gastroenterology
DX: K74.60 Unspecified cirrhosis of liver
CPT/HCPCS: 76705; 82105